=== PATIENT | male | born 1980 | race Caucasian/White ===

== ENCOUNTER 2023-02-16 06:00 | Observation (INO) ==
--- NOTE | 2023-02-12 08:34 | Anesthesiology Consultation ---
Date of Service February 12, 2023 Assessment & Plan (1) Encounter for pre-operative examination: Chart Review Chart Review: Acceptable Risk for Surgery and Patient NOT seen in Pre Admission Testing -COVID screening: Per PAT nursing assessment on 02/09/23. No known COVID-19 positive contacts or current COVID-19 related symptoms. Travel screen negative. Patient is NOT vaccinated for Covid. At surgeon discretion if preop Covid testing being done. Pt seen by PCP 02/10/23= Seen for preop evaluation. Patient with no significant risk factors. Leukocytosis secondary to current steroid therapy. Can proceed as scheduled. Patient has revised cardiac index score of No Risk Factors- 0.4% (95% Cl: 0.1-0.8) for the surgery scheduled. Pt is low risk for the listed procedure History Surgery Operation Date: 02/16/23 07:45 Proposed Procedures p C5-C7 Anterior Cervical Discectomy and Fusion - Kem Lepe DO Height/Weight Height: 6 ft 2 in Weight: 83.915 kg Allergies Allergy/AdvReac Type Severity Reaction Status Date / Time No Known Allergies Allergy Unknown Verified 02/09/23 14:35 Medications Home Medications Medication Instructions Recorded Confirmed Last Taken oxycodone 5 mg tablet 5 mg PO Q6H PRN pain #12 tabs 02/02/23 02/09/23 Unknown meloxicam 15 mg tablet 15 mg PO BID 02/09/23 02/09/23 Unknown Past Medical History Medical History History of COVID-19 2020, drive thru test, not hosp; moderate symptoms>resolved. Hx of shortness of breath allergic flare-up>rescue inhaler prn No significant active problems Past Surgical History Surgical History History of lumbar surgery Social History Smoking Status: Never smoker Do You Dip or Chew Tobacco: Yes (HX-QUIT LONG TIME AGO; ADVISED) Hx Alcohol Use: Yes alcohol intake frequency: holidays/special occasions only Hx Substance Use: No substance use type: does not use Lab Results Anesthesia Preop Results Results Anesthesia Widget: Blood Type A Positive 02/11/23 Antibody Screen NEGATIVE 02/11/23 Testing Laboratory Results 02/10/23= WBC: 11.93 H/H: 15.3/44.7 PLATELETS: 302 SODIUM: 141 POTASSIUM: 3.9 CHLORIDE: 101 CO2: 27 BUN: 34 CREATININE: 1.2 GLUCOSE: 112 PT: 12.6 PTT: 26 INR: 0.9 UA: Negative Electrocardiogram Date: 02/10/23 Findings: + NSR @ (90bpm ) Possible left atrial enlargement Chest X-Ray Date: 02/10/23 Findings: + NAD
[~2023-02-16 06:00] MED LIST: ACETAMINOPHEN 500 MG TAB PO SCH; CeleBREX 200 MG CAP PO SCH; GABAPENTIN 900 MG DOSE PO SCH; LR 15ML/HR IV SCH; ceFAZolin 2000MG 2,000 MG/15 ML SYR IV SCH
[2023-02-16] MEDS ORDERED: MIDAZOLAM HCL 1 MG/ML 2ML VIAL ONE (07:00)
[2023-02-16] MEDS ORDERED: SUCCINYLCHOLINE CHLORIDE 20 MG/ML 10 ML VIAL IV ONE (07:00)
[2023-02-16] MEDS ORDERED: ROCURONIUM BROMIDE 10 MG/ML 5 ML VIAL IV ONE ×2 (07:00→08:55)
[2023-02-16] MEDS ORDERED: fentaNYL citrate PF 100 MCG/2 ML VIAL ONE ×2 (07:00→08:42)
[2023-02-16] MEDS ORDERED: LIDOCAINE 2% MPF LOCAL 5 ML VIAL ONE (07:00)
[2023-02-16] MEDS ORDERED: PROPOFOL IV EMULSION 10 MG/ML 20 ML VIAL IV ONE (07:00)
[2023-02-16] MEDS ORDERED: KETAMINE 50 MG/5 ML SYRINGE ONE (07:01)
[2023-02-16] MEDS ORDERED: PROPOFOL IV EMULSION 10 MG/ML 100 ML VIAL IV ONE (07:02)
[2023-02-16] MEDS ORDERED: ceFAZolin 330 MG/ML 1 GM VIAL ONE (07:04)
[2023-02-16] MEDS ORDERED: LIDOCAINE 2% JELLY 5 ML TUBE EXT ONE (07:09)
[2023-02-16] MEDS ORDERED: ONDANSETRON INJ 2 MG/ML 2 ML VIAL IV PRN ×2 (07:13→11:02)
[2023-02-16] MEDS ORDERED: ATROPINE SULFATE 0.1 MG/ML 10ML SYR IV PRN (07:13)
[2023-02-16] MEDS ORDERED: HYDROmorphone INJ 2 MG/ML SYR/VIAL IV PRN (07:13)
[2023-02-16] MEDS ORDERED: ePHEDrine sulfate 50 MG/ML AMP IV PRN (07:13)
[2023-02-16] MEDS ORDERED: PROMETHAZINE HCL 6.25 MG in SODIUM CHLORIDE 0.9% 50 ML IV PRN (07:13)
--- NOTE | 2023-02-16 07:35 | History & Physical Bridge Note ---
Date of Service February 16, 2023 History & Physical Bridge Note I have examined the patient, reviewed the History & Physical and in the interval since the performance of the History & Physical I have noted the following changes of clinical significance: no changes noted
--- NOTE | 2023-02-16 07:36 | History & Physical Report ---
Date of Service February 16, 2023 Assessment & Plan (1) Herniation of cervical intervertebral disc with radiculopathy: Plan: C5-C7 anterior cervical discectomy and fusion History of Present Illness Chief Complaint: Neck and arm pain Primary Care Provider: Mynor Hills MD This is a 42-year-old male presents with chronic persistent neck and arm pain after failing course of nonoperative care is here for surgical invention. Allergies Allergy/AdvReac Type Severity Reaction Status Date / Time No Known Allergies Allergy Unknown Verified 02/16/23 06:32 Home Medications Medication Instructions Recorded Confirmed Type oxycodone 5 mg tablet 5 mg PO Q6H PRN pain #12 tabs 02/02/23 02/16/23 Rx meloxicam 15 mg tablet 15 mg PO BID 02/09/23 02/16/23 History Past Med/Surg History Medical History History of COVID-2020, drive thru test, not hosp; moderate symptoms>resolved. Hx of shortness of breath allergic flare-up>rescue inhaler prn No significant active problems Surgical History History of lumbar surgery Social History Smoking Status: Never smoker Second Hand Exposure: No; Do You Dip or Chew Tobacco: Yes (HX-QUIT LONG TIME AGO; ADVISED); Tobacco Cessation Education Requested by Patient: No Hx Alcohol Use: Yes Hx Substance Use: No Preferred Language: [place] Communication Ability: Effective Heel Gouger Required: No Beliefs That Will Affect Care: None Current Living Situation: Spouse and Family Other Information That Helps Us Care for You: No Feels Safe at Home: Yes Safety Concerns: Feels Safe At This Time Assistive Devices: None Physical Exam Physical Exam: Patient is alert and oriented Heart regular rhythm Lungs clear Results & Data Results & Data Vital Signs (Past 12 Hours) Vital Signs Temp Pulse Resp BP Pulse Ox O2 Del Method 02/16/23 06:30 36.6 C 85 20 151/106 H 97 Room Air
[2023-02-16] MEDS ORDERED: FLOSEAL HEMOSTATIC MATRIX 10ML TOP ONE (08:36)
[2023-02-16] MEDS ORDERED: DEXAMETHASONE SOD INJ 4 MG/ML VIAL ONE (08:38)
[2023-02-16] MEDS ORDERED: ONDANSETRON INJ 2 MG/ML 2 ML VIAL ONE (08:38)
--- NOTE | 2023-02-16 08:56 | Operative Report ---
Post Operative Report Pre & Post Diagnosis Operation Date: 02/16/23 07:45 Pre-Op Diagnosis: Cervical disc herniation with radiculopathy Post-Op Diagnosis: Same I identified the patient and participated in the time-out.: Yes Procedure Operation Date: 02/16/23 07:45 Actual Procedures #1 anterior cervical discectomy with bilateral foraminotomies C6-C7. #2 anterior cervical arthrodesis C6-C7. #3 placement of Spira 8 mm cage filled with I factor C6-C7. #4 application of K2 M plate and screws across C6-C7. Surgeon Kem Lepe, Brand Representative Liliya Holcomb Estimated Blood Loss 10 Findings Consistent with Post-Op Diagnosis Specimens None Indications This is a 42-year-old male who presents above-mentioned diagnosis after failed course of nonoperative care is here for surgical invention. Description of Procedure Patient was met with identified informed consent obtained. Patient was then taken to the operative suite underwent ablation placed in a supine position on Devon table with head Ivy head loader. All bony promises well-padded eyes inspected to ensure no external pressure placed upon the. This point the anterior cervical spine was prepped and draped in a sterile fashion. The assistance of fluoroscopy identified the C6 vertebral body and a transverse in cision was placed along the right anterior aspect of the cervical spine overlying this region. Blunt dissection with assistance of bipolar electrocautery was then performed down to and exposing the anterior cervical spine from C6-C7. Self-retaining retractors placed. Then performed a complete discectomy at C6-C7 out to the uncovertebral joints bilaterally. Coffey distracting pins utilized to assist in visualization. Removed all posterior annular fibers longitudinal ligament then applied massive fragment of disc material and left neural foramen. After complete decompression endplates were burred to subcortical being bone and a 8 mm spiral cage with I factor tapped in position. The C5-C6 level on scans was stable no evidence of spondylosis or collapse and elected to forego stabilization at this region. The incision was then copiously irrigated explored to ensure no damage surrounding structures remaining bleeding. 10 round GRACE drain inserted. The incision was then closed with 2 Vicryl in a fashion of 4 Monocryl for final skin closure. Steri-Strips sterile dressing placed. Patient awakened taken to PACU in stable condition. Please note spinal cord monitoring was utilized at the procedure no changes noted. Lastly Liliya Holcomb was present at the entire procedure involved the patient positioning complex portions of the surgery and final skin closure. I attest to the content of the Intraoperative Record and any orders documented therein. Any exceptions are noted below.
[2023-02-16] MEDS ORDERED: SUGAMMADEX SODIUM 200 MG/2 ML VIAL IV ONE (09:04)
--- NOTE | 2023-02-16 09:21 | Fluoroscopy Report ---
FL cervical 2-3V CLINICAL HISTORY: ACDF C5-C7 COMPARISON STUDY: None FLUOROSCOPY TIME: 7.7 seconds FLUOROSCOPY IMAGES: 2 EXPOSURE DOSE: 0.5 mGy FINDINGS: Anterior plate and screw fusion hardware is noted at what appears to be C6-C7 level with di scectomy. No acute fracture or malalignment identified. The visualized hardware appears intact. Surgi mayra sponge noted within the anterior operative bed. Endotracheal tube and surgical drainage catheter noted. IMPRESSION: Fluoroscopic assistance as above. ACT 112: Negative or not required by law. Electronically signed by: Jack Mandel M.D. 02/16/2023 9:19 AM
[2023-02-16] MEDS: fentaNYL citrate PF 100 MCG/2 ML VIAL IV PRN ×3 (09:46→10:25)
--- NOTE | 2023-02-16 10:30 | Anesthesiology Progress Note ---
Date of Service February 16, 2023 Anesthesia Post Procedure Vital Signs Vital Signs: Temp Pulse Pulse Resp BP Pulse Ox O2 Del Method 02/16/23 10:20 74 13 134/90 96 Room Air 02/16/23 10:10 73 15 124/84 97 Room Air 02/16/23 10:00 76 16 129/79 97 Room Air 02/16/23 09:50 72 16 123/85 99 Oxymask 02/16/23 09:40 73 18 114/79 100 Oxymask 02/16/23 09:32 36.0 C L 72 18 126/88 100 Oxymask 02/16/23 06:30 36.6 C 85 20 151/106 H 97 Room Air O2 Flow Rate 02/16/23 10:20 02/16/23 10:10 02/16/23 10:00 02/16/23 09:50 4 02/16/23 09:40 4 02/16/23 09:32 6 02/16/23 06:30 Pain Intensity Left Arm: Pain Intensity: 0 Transfer of Care Handoff Completed per policy Notes Mental Status: alert / awake / arousable and participated in evaluation Patient Amnestic to Procedure: Yes Nausea / Vomiting: adequately controlled Pain: adequately controlled Airway Patency, RR, SpO2: stable & adequate BP & HR: stable & adequate Hydration State: stable & adequate Anesthetic Complications: no major complications apparent and Pt Satisfied with anesthetic care
[2023-02-16] MEDS ORDERED: LORazepam 2 MG/1 ML VIAL IV PRN (11:02)
[2023-02-16] MEDS ORDERED: ALUMINUM/MAGNESIUM SUSP 30 ML UDC PO PRN (11:02)
[2023-02-16] MEDS ORDERED: hydrOXYzine HCl 25 MG TAB PO PRN (11:02)
[2023-02-16] MEDS ORDERED: ACETAMINOPHEN 500 MG TAB PO PRN (11:02)
[2023-02-16] MEDS ORDERED: HYDROmorphone INJ 0.5 MG/0.5 ML SYR IV PRN (11:02)
[2023-02-16] MEDS ORDERED: NALOXONE HCL 0.4 MG/1 ML VIAL/CARP IV PRN (11:02)
[2023-02-16] MEDS ORDERED: FAMOTIDINE 20 MG TAB PO PRN (11:02)
[2023-02-16] MEDS ORDERED: DO NOT ADMINISTER FLU VACCINE PRN (11:02)
[2023-02-16] MEDS ORDERED: METOCLOPRAMIDE HCL INJ 5 MG/ML 2 ML VIAL IV PRN (11:02)
[2023-02-16] MEDS ORDERED: RACEPINEPHRINE 2.25% NEBU SOLN 0.5 ML VIAL INH PRN (11:02)
[2023-02-16] MEDS ORDERED: dexAMETHasone 8 MG in SYRINGE 0 ML IV PRN (11:02)
[2023-02-16] MEDS ORDERED: diphenhydrAMINE Capsule 25 MG CAP PO PRN (11:02)
[2023-02-16] MEDS ORDERED: DO NOT ADMINISTER PNEUMOCOCCAL VACCINE PRN (11:02)
[2023-02-16] MEDS ORDERED: SOD PHOSPHATE/SOD BIPHOSPHATE ENEMA 132 ML BTL PR PRN (11:02)
[2023-02-16] MEDS ORDERED: ACETAMINOPHEN 1,000 MG/100 ML VIAL IV PRN (11:02)
[2023-02-16] MEDS ORDERED: traMADol HCL 50 MG TABLET PO PRN (11:02)
[2023-02-16] MEDS ORDERED: ONDANSETRON 4 MG OD TAB PO PRN (11:02)
[2023-02-16] MEDS ORDERED: oxyCODONE HCL IR 5 MG TAB (IMMEDIATE RELEASE) PO PRN (11:02)
[2023-02-16] MEDS ORDERED: MAGNESIUM HYDROXIDE SUSP 30 ML UDC PO PRN (11:02)
[2023-02-16] MEDS ORDERED: HYDROmorphone INJ 1 MG/ML SYRINGE IV PRN (11:02)
[2023-02-16] MEDS ORDERED: LORazepam 0.5 MG TAB PO PRN (11:02)
[2023-02-16] MEDS ORDERED: bisacodyL 10 MG SUPP PR PRN (11:02)
[2023-02-16] MEDS ORDERED: PROMETHAZINE HCL 12.5 MG in SODIUM CHLORIDE 0.9% 50 ML IV PRN (11:02)
[2023-02-16] MEDS: LACTATED RINGER'S 1,000 ML IV SCH ×2 (12:15→18:10)
[2023-02-16] MEDS: dexAMETHasone 6 MG in SYRINGE 0 ML IV SCH (12:15)
[2023-02-16] MEDS: ceFAZolin 2000MG 2,000 MG/15 ML SYR IV SCH ×2 (16:03→23:32)
[2023-02-16] MEDS ORDERED: DOCUSATE SODIUM/SENNA 50/8.6MG TAB PO SCH (21:00)
[2023-02-17] MEDS: LACTATED RINGER'S 1,000 ML IV SCH ×2 (00:44→07:12)
[2023-02-17] MEDS ORDERED: POLYETHYLENE (MIRALAX) 17 GM PACK PO SCH (06:00)
[2023-02-17] MEDS: dexAMETHasone 6 MG in SYRINGE 0 ML IV SCH (08:57)
--- NOTE | 2023-02-17 10:49 | Discharge Summary ---
Date of Service February 17, 2023 Admission HPI Per Admitting Provider This is a 42-year-old male presents with chronic persistent neck and arm pain after failing course of nonoperative care is here for surgical invention. Principal Diagnosis Cervical disc herniation with radiculopathy Discharge Data Allergies Allergy/AdvReac Type Severity Reaction Status Date / Time No Known Allergies Allergy Unknown Verified 02/16/23 06:32 Procedures Performed Operation Date: 02/16/23 07:45 Actual Procedures p C6-C7 Anterior Cervical Discectomy and Fusion, Spinal Cord Monitoring(Not Applicable) - Kem Lepe DO Ordered Studies 02/16/23 07:45 FL cervical 2-3V Routine Hospital Course (1) Herniation of cervical intervertebral disc with radiculopathy: Patient underwent anterior cervical discectomy and fusion tolerated as well as taken to the orthopedic for postoperative. Postop day #1 he is swallowing well no hoarseness arm symptoms markedly improved. Excellent strength testing. GRACE drain decreased probably. Simply discharged home. Discharge orders instructions from the chart for further review. Total Time Total Time Spent Total Time Spent (In Minutes): 20 minutes Discharge Plan Discharge Items Patient Disposition: Home - Self-Care Reason For Visit: Spinal Stenosis, Cervical Region Discharge Diagnosis: Cervical disc herniation with radiculopathy Activity: As commented below Non-emergency contact: Primary Care Provider Call non-emergency contact if: you have any medication questions Follow-up/Referrals: Mynor Hills MD [Primary Care Provider] - Diet: Regular Addtl Attending Provider Instructions: ACTIVITY RECOMMENDATIONS: SELF CARE INSTRUCTIONS AFTER CERVICAL FUSIONS 1. No smoking. Smoking drastically decreases the chance of a solid fusion. 2. No bending, lifting more than 5 pounds, or twisting (roll like a log when turning in bed). 3. You may shower 3 days after surgery. Thoroughly dry wound. Do not soak in the tub. 4. Cervical collar: Must be worn at all times including sleeping. You may remove the brace only to bath, eat and if you are sitting in a recliner. 5. Please walk as much as you can for exercise. Gradually increase the distance that you walk as your endurance increases. SPECIAL CARE INSTRUCTIONS: VERY IMPORTANT TO READ AND REVIEW A. Do not take any anti-inflammatory medications (i.e. Indocin, Advil, Aspirin, Naprosyn, Aleve, Motrin, etc.) as these may inhibit the chance of a solid fusion. Tylenol is okay to take. B. Your surgical incision has been closed with a cosmetic suture under the skin that will dissolve in about 6 weeks. In 14 days, you can use a pair of clean scissors and cut the suture that is left outside of the skin at the ends of your incision. C. Complications are uncommon, but please contact us if you have any signs or symptoms of: 1. wound infection (fever higher than 102.5 degrees F, redness, separation of wound, drainage, or increasing pain from the incision) 2. blood clots in legs (pain, swelling, redness and warmth in legs) 3. urinary tract infection (fever higher than 102.5 degrees, burning upon urination or increased frequency of urination) 4. nerve problems (inability to walk on your toes or heels, numbness, loss of bowel or bladder control) 5. any other symptoms that concern you. D. Please call the office at if you have any concerns or questions about your operation or recovery. MANAGING PAIN AFTER SPINAL SURGERY 1. Narcotic medication is intended for short-term use and will be provided for surgical pain. Surgical pain usually lasts for a period of 4-6 weeks. Narcotic medication includes Percocet, Vicodin, Darvocet, Tylenol #3 or Lortab. 2. Longer-term pain is more appropriately treated with non-narcotic medication such as Tylenol ES. 3. Muscle spasm is not appropriately treated with narcotics. Muscle relaxers such as Soma, Flexeril or Skelaxin can be used along with Tylenol ES. 4. Remember that we all live with some "aches and pains". This is not unusual or uncommon after an injury or as we get older. 5. We will provide appropriate medication within the normal guidelines of their prescribed use. We will also be very cautious and aware of potential abuse and extended duration of patients' medication needs. 6. Please allow 2-3 days to process refills. Prescriptions will not be mailed but must be picked up at the office. FOLLOW UP VISIT: Keep your scheduled follow-up appointment. Any questions, please call the office at . Pending Studies at Discharge: No Stand-Alone Forms: [facility], Smoking Cessation Medications and DC Order Prescriptions: New tramadol 50 mg tablet 50 mg PO Q6H PRN (Reason: pain, moderate) Qty: 30 0RF oxycodone-acetaminophen [Percocet] 5-325 mg tablet 1 tab PO Q8H Qty: 20 0RF Continued oxycodone 5 mg tablet 5 mg PO Q6H PRN (Reason: pain) Qty: 12 0RF Rx Instructions: Initial Treatment Discontinued meloxicam 15 mg tablet 15 mg PO BID Discharge Orders: Discharge Order (Routine); Ordered 02/17/23 Ordered By: Kem Lepe Admission Data Admit Date/Time: 02/16/23 08:59 Attending Provider: Kem Lepe Admit Provider: Kem Lepe Primary Care Provider: Mynor Hills
== END 2023-02-17 11:38 | disposition home or self-care (01) ==
LOC: ASU 06:00 → 3E 08:59 → INTOOBSV 08:59